=== PATIENT | female | born 1980 | race Caucasian/White ===

== ENCOUNTER 2018-08-24 22:43 | Emergency (ER) | payer OTHER ==
[~2018-08-24] VITALS: Ht 160 cm; Wt 66.7 kg
--- NOTE | 2018-08-25 17:32 | EKG ---
[facility] [address] [facility] [place], [place] [address] Signed Normal sinus rhythm Normal ECG No previous ECGs available Confirmed by MARILYNN WARD DO ([id number]) on 08/25/2018 5:31:59 PM Electronically Signed By: MARILYNN WARD DO 08/25/18 1732 PATIENT NAME: TOSHA TAFOYA UPPER [place] Electrocardiogram DATE OF : 76 PHYSICIAN: MARILYNN WARD DO REPORT #: [id number] REPORT IS CONFIDENTIAL AND NOT TO BE RELEASED WITHOUT AUTHORIZATION
== END 2018-08-25 00:47 | disposition home or self-care (01) ==
LOC: ED 22:43 → EDBD 22:44 → ED 08-25 00:47
DX: G89.29 Other chronic pain (principal); M54.2 Cervicalgia; F17.200 Nicotine dependence, unspecified, uncomplicated; Z86.73 Personal history of transient ischemic attack (TIA), and cerebral infarction without residual deficits
CPT/HCPCS: 71046; 80053; 84484; 85025; 93005; 93010; 99284-25